=== PATIENT | female | born 1980 | race Caucasian/White ===

== ENCOUNTER 2019-11-15 10:34 | Observation (INO) | payer OTHER ==
[~2019-11-15] VITALS: Ht 160 cm; Wt 88.0 kg
[2019-11-15] MEDS ORDERED: PREN-537 PO (14:51)
[2019-11-15] MEDS ORDERED: FERR-252 PO (14:51)
== END 2019-11-15 15:00 | disposition home or self-care (01) ==
LOC: MLD 10:34
PROVIDERS: ADMIT Obstetrics & Gynecology; ATTEND Obstetrics & Gynecology
DX: O62.9 Abnormality of forces of labor, unspecified (principal); Z20.828 Contact with and (suspected) exposure to other viral communicable diseases; O09.523 Supervision of elderly multigravida, third trimester; Z3A.38 38 weeks gestation of pregnancy
CPT/HCPCS: 76805; G0378; Q0092; U0003; 59025; 81000